=== PATIENT | male | born 2000 | race Caucasian/White ===

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

== ENCOUNTER 2021-02-23 05:25 | Inpatient (IN) | payer BC ==
[~2021-02-23] VITALS: Ht 170.2 cm; Wt 72.4 kg
[2021-02-23] VITALS (19 sets, daily range): BP systolic 97–110; BP diastolic 55–73
[2021-02-23] MEDS ORDERED: NS 1,000 ML IV ONE (05:35)
[2021-02-23 05:44] LABS: BASO % 0.4 % (0.0-1.0); EOS % 0.6 % (0.0-3.0); HEMATOCRIT 43.8 % (42.0-52.0); HEMOGLOBIN 14.8 g/dl (13.5-17.5); LYMPH % 40.5 % (24.0-44.0); MEAN CORPUSCULAR HEMOGLOBIN 32.2 pg (27.0-33.0); MEAN CORPUSCULAR HGB CONC 33.8 g/dl (32.0-36.5); MEAN CORPUSCULAR VOLUME 95.4 fl (80.0-96.0); MONO # 0.5 10^3/uL (0.0-0.8); MONO % 9.6 % (2.0-8.0); NEUTROPHILS # 2.4 10^3/uL (1.5-8.5); NEUTROPHILS % 48.3 % (36.0-66.0); PLATELET COUNT, AUTOMATED 234 10^3/uL (150-450); RED BLOOD COUNT 4.59 10^6/uL (4.30-6.10); WHITE BLOOD COUNT 4.9 10^3/uL (4.0-10.0)
[2021-02-23 06:16] LABS: ACETAMINOPHEN LEVEL 270.3 UG/ML (10.0-30.0); ALBUMIN 3.8 GM/DL (3.2-5.2); ALT/SGPT 41 U/L (12-78); BILIRUBIN,DIRECT < 0.1 MG/DL (0.0-0.2); BILIRUBIN,TOTAL 0.3 MG/DL (0.2-1.0); BLOOD UREA NITROGEN 10 MG/DL (7-18); CALCIUM LEVEL 8.3 MG/DL (8.5-10.1); CARBON DIOXIDE LEVEL 25 MEQ/L (21-32); CHLORIDE LEVEL 110 MEQ/L (98-107); CPK CREATINE PHOSPHOKINASE 71 U/L (39-308); CREATININE FOR GFR 0.74 MG/DL (0.70-1.30); ETHYL ALCOHOL (ETHANOL) 0.294 % (0.000-0.010); GLOMERULAR FILTRATION RATE > 60.0 (>60); GLUCOSE, FASTING 154 MG/DL (70-100); SALICYLATE LEVEL < 1.7 MG/DL (5.0-30.0); SODIUM LEVEL 145 MEQ/L (136-145)
[2021-02-23] MEDS ORDERED: TEST200I14 SC (06:23)
[2021-02-23] MEDS ORDERED: PROP20TA72 PO (06:23)
[2021-02-23] MEDS ORDERED: QUET50TA3 PO (06:23)
[2021-02-23] MEDS ORDERED: NS 2,240 ML in IV 1 EA IV ONE (06:45)
[2021-02-23 06:47] LABS: AMPHETAMINES LEVEL URINE NEGATIVE (NEGATIVE); BARBITURATES URINE NEGATIVE (NEGATIVE); BENZODIAZEPINES URINE NEGATIVE (NEGATIVE); CANNABINOIDS URINE NEGATIVE (NEGATIVE); COCAINE METABOLITE URINE NEGATIVE (NEGATIVE); METHADONE URINE NEGATIVE (NEGATIVE); OPIATES URINE NEGATIVE (NEGATIVE); PHENCYCLIDINE URINE NEGATIVE (NEGATIVE)
[2021-02-23 07:09] LABS: RSV AMPLIFICATION NEGATIVE (NEGATIVE)
--- NOTE | 2021-02-23 08:31 | ECGEPIP ---
[facility] [place] - ED Test Date: 2021-02-23 Pat Name: NADJA ESCOBEDO Department: Room: - Gender: Male Freight Loader: OSKAR : 2000 Requested By: ELIZABETH Bhatia Order Number: [id number] Reading MD: Dl Steel Measurements Intervals [place] Rate: 63 P: 70 AL: 134 QRS: 81 QRSD: 92 T: 36 QT: 404 QTc: 413 Interpretive Statements Normal sinus rhythm POOR R WAVE PROGRESSION NO PRIORS FOR COMPARISON Electronically Signed on 02-23-2021 8:30:41 EDT by Dl Steel
--- NOTE | 2021-02-23 08:34 | ECGEPIP ---
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
[2021-02-23] MEDS ORDERED: NS 1,000 ML IV SCH (09:20)
[2021-02-23] MEDS ORDERED: ACETYLCYSTEINE IV ONE ×3 (12:00→16:30)
[2021-02-23] MEDS ORDERED: D5W IV ONE ×3 (12:00→16:30)
[2021-02-23] MEDS ORDERED: DEXTROSE 50% 50 ML SYRINGE IV PRN (12:15)
[2021-02-23] MEDS ORDERED: GLUCAGON INJ 1MG VIAL SC PRN (12:15)
[2021-02-23] MEDS ORDERED: GLUCOSE 4GM CHEW TABLET PO PRN (12:15)
[2021-02-23] MEDS ORDERED: NOREPINEPHRINE BITARTRATE 8 MG in D5W 492 ML IV SCH (13:00)
[2021-02-23] MEDS: ONDANSETRON 4MG/2ML VIAL IV PRN (13:02)
[2021-02-23] MEDS ORDERED: LORazepam 2 MG TAB PO PRN (13:40)
--- NOTE | 2021-02-23 13:42 | HPEPDOC ---
General Date of Admission Feb 23, 2021 at 10:59 Date of Service: Feb 23, 2021 Chief Complaint The patient is a 20-year-old male admitted with a reason for visit of Hypotension And Intentional Drug Overdose. Source: Family, RN/MD History of Present Illness Mr. Scott is a 20 year old male with borderline personality disorder who was found unresponsive after intentional overdose. 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 No genital surgery, but did have breast removal surgery. Patient does follow with an pediatric lpn for testosterone. Patient is currently male. Patient has been having mental health issues since being a child. Mother tells me that he was diagnosed with borderline personality disorder and when he was on antidepressants, he would have suicidal ideation. Last night, around 4AM, he was talking with his best friend and asked the friend to take care of his pets. The friend hear pill rolling and asked the patient about it. Then at 4:15aM, patient was silent. The friend contacted patient's mom, and then contacted 911. Patient was brought to the ED. Patient is suspected to have overdosed on Seroquel, propranolol, acetaminophen, and alcohol. Known how many pills of Seroquel or propranolol due to being old prescriptions. Patient's qTC was not prolonged, but patient was hypotensive without bradycardia. Mother says that he was on propranolol for anxiety. Patient had an alcohol level of 0.294 and initial acetaminophen level of 270.3. Later on, it increased to 315.9. Poison control was contacted. Recommended the acetylcysteine protocol and rechecking the acetaminophen level until it plateaus. Due to the hypotension, recommended aggressive fluids and pressors. Central line was placed by ED provider. When I saw the patient, he was still obtunded. Mother was present and provided most of the history. Home Medications Scheduled Propranolol HCl (Propranolol HCl) 20 Mg Tablet, 20 MG PO BID, (Reported) Quetiapine Fumarate (Quetiapine Fumarate) 50 Mg Tablet, 50 MG PO QHS, (Reported) Testosterone Cypionate (Testosterone Cypionate) 200 Mg/1 Ml Vial, 0.3 ML SC QWEEK, (Reported) FRIDAYS OR SATURDAYS Allergies Coded Allergies: lamotrigine (Verified Allergy, Mild, RASH, 02/23/21) Past Medical History Medical History 1. Transgender (Born female, current male) 2. Borderline personality disorder with history of inpatient psych hospitalizations 3. Suicidal ideation 4. Anxiety Surgical History 1. Breast removal Family History Patient is obtunded, unable to obtain past family history from patient Social History * Smoker: other (Patient is obtunded, unable to obtain social history from patient) A-FIB/CHADSVASC A-FIB History Current/History of A-Fib/PAF?: No Review of Systems Other systems Patient is obtunded, unable to obtain review of systems from patient Physical Examination General Exam: Negative: Alert, Cooperative Eye Exam: Positive: Other Eye Symptoms (Pupils equal and round, sclera clear) ENT Exam: Positive: Atraumatic Chest Exam: Positive: Clear to auscultation Heart Exam: Positive: Rate Normal, Regular Rhythm Abdomen Exam: Positive: Normal bowel sounds Extremity Exam: Positive: Edema (mild bilateral pitting edema) Skin Exam: Positive: Nl turgor and temperature Neuro Exam: Positive: Other (Unable to obtain as patient was obtunded) Psych Exam: Positive: Other (Patient was obtunded); Negative: Mental status NL Vital Signs Vital Signs Date Time Temp Pulse Resp B/P (MAP) Pulse Ox O2 Delivery O2 Flow Rate FiO2 02/23/21 12:59 74 100 02/23/21 12:15 98/58 (71) 02/23/21 11:30 14 Nasal Cannula 2.0 02/23/21 06:18 97.3 Laboratory Data Labs 24H Laboratory Tests 2 02/23/21 05:30: Immature Granulocyte % (Auto) 0.6, Neutrophils (%) (Auto) 48.3, Lymphocytes (%) (Auto) 40.5, Monocytes (%) (Auto) 9.6H, Eosinophils (%) (Auto) 0.6, Basophils (%) (Auto) 0.4, Neutrophils # (Auto) 2.4, Lymphocytes # (Auto) 2.0, Monocytes # (Auto) 0.5, Eosinophils # (Auto) 0.0, Basophils # (Auto) 0.0, Nucleated Red Blo od Cells % (auto) 0.0, Anion Gap 10, Glomerular Filtration Rate > 60.0, Calcium Level 8.3L, Total Bilirubin 0.3, Direct Bilirubin < 0.1, Aspartate Amino Transf (AST/SGOT) 29, Alanine Aminotransferase (ALT/SGPT) 41, Alkaline Phosphatase 70, Total Creatine Kinase 71, Total Protein 7.0, Albumin 3.8, Albumin/Globulin Ratio 1.2, Thyroid Stimulating Hormone (TSH) 2.800, Salicylates Level < 1.7L, Acetami nophen Level 270.3H, Ethyl Alcohol Level 0.294H 02/23/21 05:55: POC pH (Misc Panel) 7.394, POC Base Excess (Misc Panel) 2.0, POC Saturated Percent O2 (Misc) 99H, POC pO2 (Misc Panel) 165.0H, POC pCO2 (Misc Panel) 44.3, POC HCO3 (Misc Panel) 27.1H, POC Total CO2 (Misc Panel) 28.0H 02/23/21 06:08: POC Beta HCG, Quantitative < 5.0 02/23/21 06:14: Urine Opiates Screen NEGATIVE, Urine Methadone Screen NEGATIVE, Urine Barbiturates Screen NEGATIVE, Urine Phencyclidine Screen NEGATIVE, Urine Amphetamines Screen NEGATIVE, Urine Benzodiazepines Screen NEGATIVE, Urine Cocaine Metabolite Screen NEGATIVE, Urine Cannabinoids Screen NEGATIVE 02/23/21 06:26: Coronavirus (COVID-19)(PCR) NEGATIVE, Influenza Type A (RT-PCR) NEGATIVE, Influenza Type B (RT-PCR) NEGATIVE, Respiratory Syncytial Virus (PCR) NEGATIVE 02/23/21 07:59: Acetaminophen Level 315.9H CBC/BMP Laboratory Tests 02/23/21 05:30 Assessment/Plan Mr. Scott is a 20 year old male with borderline personality disorder who was found unresponsive after intentional overdose. Poison control contracted. Will continue with acetylcysteine protocol and follow acetaminophen to plateau. Will check acetaminophen level 2 hours prior to completion of phase 3 of protocol. If acetaminophen is >10 or LFT's elevated, may need to contact poison control about continuing acetylcysteine. Otherwise, when patient is medically stable, patient will need to go to [facility]. Will reach out to psychiatry when patient is more awake. Continue with sitter and suicide precautions Plan / VTE VTE Prophylaxis Ordered?: Yes Plan Plan 1. Suicide attempt -Overdosed on propranolol, Seroquel, acetaminophen, and alcohol -Suicide precautions and sitter -When patient is more awake and medically stable, will reach out to psychiatry 2. Acetaminophen overdose -Poison control awake -Continue acetylcysteine protocol -Trend acetaminophen until plateau -Repeat acetaminophen level and LFT 2 hours prior to completion of phase 3 to determine if continuation of acetylcysteine is needed 3. Hypotension -Medication induced -No bradycardia -Continue with IVF -May need pressor, central line placed 4. Seroquel overdose -No qTC prolongation -Monitor on telemetry 5. Alcohol intoxication -Supportive care -Thiamine, Folic acid -CIPR protocol 6. DVT ppx -Lovenox Disposition: Pending clinical improvement, acetaminophen levels, and LFTs. Patient will most likely need IMHU when medically stable. MIGUEL ÁNGEL FRIEDMAN DO Feb 23, 2021 13:42
[2021-02-23] MEDS: NS 1,000 ML IV SCH ×2 (16:01→23:35)
[2021-02-23] MEDS: THIAMINE 200MG/2ML VIAL (J3411 PER 100MG) IV SCH (16:26)
[2021-02-23] MEDS: FOLIC ACID 1 MG in NS 50 ML IV SCH (16:31)
[2021-02-24] VITALS: BP 112/58
[2021-02-24 02:00] VITALS: BP 120/68
[2021-02-24 04:00] VITALS: BP 115/69
[2021-02-24] MEDS: ONDANSETRON 4MG/2ML VIAL IV PRN ×2 (04:18→10:53)
[2021-02-24 05:17] LABS: HEMATOCRIT 39.2 % (42.0-52.0); HEMOGLOBIN 13.2 g/dl (13.5-17.5); MEAN CORPUSCULAR HEMOGLOBIN 32.1 pg (27.0-33.0); MEAN CORPUSCULAR HGB CONC 33.7 g/dl (32.0-36.5); MEAN CORPUSCULAR VOLUME 95.4 fl (80.0-96.0); PLATELET COUNT, AUTOMATED 194 10^3/uL (150-450); RED BLOOD COUNT 4.11 10^6/uL (4.30-6.10); WHITE BLOOD COUNT 3.4 10^3/uL (4.0-10.0)
[2021-02-24 05:34] LABS: ACETAMINOPHEN LEVEL 56.2 UG/ML (10.0-30.0); ALBUMIN 2.9 GM/DL (3.2-5.2); ALT/SGPT 63 U/L (12-78); BILIRUBIN,DIRECT 0.3 MG/DL (0.0-0.2); TOTAL PROTEIN 5.7 GM/DL (6.4-8.2)
[2021-02-24] MEDS: NS 1,000 ML IV SCH ×3 (06:05→17:02)
[2021-02-24 08:00] VITALS: BP 124/62
[2021-02-24] MEDS ORDERED: ACETYLCYSTEINE 7,300 MG in D5W 1,000 ML IV ONE (08:30)
[2021-02-24] MEDS: PANTOPRAZOLE 40MG TAB (PROTONIX) PO SCH (08:44)
[2021-02-24] MEDS: ENOXAPARIN 40MG/0.4ML SYRINGE (J1650 PER 10MG) SC SCH (08:44)
[2021-02-24 10:34] LABS: BLOOD UREA NITROGEN 5 MG/DL (7-18); CALCIUM LEVEL 7.2 MG/DL (8.5-10.1); CARBON DIOXIDE LEVEL 21 MEQ/L (21-32); CHLORIDE LEVEL 112 MEQ/L (98-107); CREATININE FOR GFR 0.78 MG/DL (0.70-1.30); GLOMERULAR FILTRATION RATE > 60.0 (>60); GLUCOSE, FASTING 164 MG/DL (70-100); SODIUM LEVEL 143 MEQ/L (136-145)
[2021-02-24] MEDS ORDERED: POTASSIUM CHLORIDE 10 MEQ SR TABLET PO ONE (11:00)
[2021-02-24 11:09] LABS: MAGNESIUM LEVEL 1.7 MG/DL (1.8-2.4)
[2021-02-24] MEDS: THIAMINE 200MG/2ML VIAL (J3411 PER 100MG) IV SCH (12:32)
--- NOTE | 2021-02-24 13:23 | IPNPDOC ---
Subjective Date Seen The patient was seen on 02/24/21. Subjective Chief Complaint/HPI Mr. Scott is a 20 year old male with borderline personality disorder who was found unresponsive after intentional overdose. This morning, he appears more alert. He still has some nausea, but he feels hungry enough to try a diet. Otherwise, acetaminophen level is still not at goal. Continuing another phase 3 dose. This would be his second phase 3 dose. Objective Physical Examination General Exam: Positive: Alert, Cooperative Eye Exam: Positive: Other Eye Symptoms (Pupils equal and round, sclera clear) ENT Exam: Positive: Atraumatic Chest Exam: Positive: Clear to auscultation Heart Exam: Positive: Rate Normal, Regular Rhythm Abdomen Exam: Positive: Normal bowel sounds Extremity Exam: Positive: Edema (mild bilateral pitting edema) Skin Exam: Positive: Nl turgor and temperature Neuro Exam: Positive: Normal Speech Psych Exam: Positive: Mental status NL, Mood NL Assessment /Plan Assessment Mr. Scott is a 20 year old male with borderline personality disorder who was found unresponsive after intentional overdose. Poison control contracted. Will continue with acetylcysteine protocol and follow acetaminophen to plateau. Will check acetaminophen level 2 hours prior to completion of phase 3 of protocol. Goal is acetaminophen >10 and plateauing LFTs. Acetaminophen still elevated after phase 3 of protocol. Continuing with 2nd phase 3 of protocol Otherwise, when patient is medically stable, patient will need to go to IMHU. Will reach out to psychiatry when patient is more awake. Continue with sitter and suicide precautions Plan/VTE VTE Prophylaxis Ordered?: Yes Plan 1. Suicide attempt -Overdosed on propranolol, Seroquel, acetaminophen, and alcohol -Suicide precautions and sitter -When patient is more medically stable, will reach out to psychiatry 2. Acetaminophen overdose -Poison control aware -Continue acetylcysteine protocol -Trend LFTs until plateau -Repeat acetaminophen level 2 hours prior to completion of phase 3 acetylcysteine 3. Hypotension -Medication induced -No bradycardia -Continue with IVF -May need pressor, central line placed 4. Seroquel overdose -No qTC prolongation -Monitor on telemetry 5. Alcohol intoxication -Supportive care -Thiamine, Folic acid -CIWA protocol 6. DVT ppx -Lovenox Disposition: Pending clinical improvement, acetaminophen levels, and LFTs. Patient will most likely need IMHU when medically stable. VS, I&O, 24H, Fishbone Vital Signs/I&O Vital Signs Date Time Temp Pulse Resp B/P (MAP) Pulse Ox O2 Delivery O2 Flow Rate FiO2 02/24/21 08:00 97.8 66 17 124/62 (82) 98 Room Air 02/23/21 11:30 2.0 I&O- Last 24 Hours up to 6 AM 02/24/21 06:00 Intake Total 7156.59 ml Output Total 2560 ml Balance 4596.59 ml Laboratory Data 24H LABS Laboratory Tests 2 02/23/21 14:02: Acetaminophen Level 238.1H 02/23/21 16:18: Bedside Glucose (Misc Panel) 124H 02/23/21 17:25: Acetaminophen Level 192.3H 02/23/21 17:58: Bedside Glucose (Misc Panel) 116H 02/23/21 20:57: Acetaminophen Level 236.8H 02/24/21 00:48: Bedside Glucose (Misc Panel) 105 02/24/21 04:43: Acetaminophen Level 56.2H, Nucleated Red Blood Cells % (auto) 0.0, Anion Gap 10, Glomerular Filtration Rate > 60.0, Calcium Level 7.2L, Magnesium Level 1.7L, Total Bilirubin 1.0#, Direct Bilirubin 0.3H, Aspartate Amino Transf (AST/SGOT) 62H, Alanine Aminotransferase (ALT/SGPT) 63, Alkaline Phosphatase 51, Total Protein 5.7L, Albumin 2.9#L, Albumin/Globulin Ratio 1.0 02/24/21 06:47: Bedside Glucose (Misc Panel) 159H CBC/BMP Laboratory Tests 02/24/21 04:43 MIGUEL ÁNGEL FRIEDMAN DO Feb 24, 2021 13:22
[2021-02-24 15:39] VITALS: BP 122/77
[2021-02-24] MEDS: FOLIC ACID 1 MG in NS 50 ML IV SCH (17:02)
[2021-02-24 22:00] VITALS: BP 128/72
[2021-02-25 00:28] LABS: BILIRUBIN,DIRECT 0.8 MG/DL (0.0-0.2); TOTAL PROTEIN 5.6 GM/DL (6.4-8.2)
[2021-02-25] MEDS ORDERED: ACETYLCYSTEINE 0 MG in D5W 1,000 ML IV ONE (01:05)
[2021-02-25] MEDS: NS 1,000 ML IV SCH (01:28)
[2021-02-25] MEDS: ONDANSETRON 4MG/2ML VIAL IV PRN ×3 (01:28→18:00)
[2021-02-25] MEDS ORDERED: ACETYLCYSTEINE 7,300 MG in D5W 1,000 ML IV ONE (01:30)
[2021-02-25 05:47] VITALS: BP 124/79
[2021-02-25] MEDS: METOCLOPRAMIDE INJ 10MG/2ML VIAL (J2765 PER 1) IV PRN ×3 (06:05→18:00)
[2021-02-25 08:01] LABS: HEMATOCRIT 38.2 % (42.0-52.0); HEMOGLOBIN 13.3 g/dl (13.5-17.5); MEAN CORPUSCULAR HEMOGLOBIN 32.6 pg (27.0-33.0); MEAN CORPUSCULAR HGB CONC 34.8 g/dl (32.0-36.5); MEAN CORPUSCULAR VOLUME 93.6 fl (80.0-96.0); PLATELET COUNT, AUTOMATED 201 10^3/uL (150-450); RED BLOOD COUNT 4.08 10^6/uL (4.30-6.10); WHITE BLOOD COUNT 4.8 10^3/uL (4.0-10.0)
[2021-02-25] MEDS: PANTOPRAZOLE 40MG TAB (PROTONIX) PO SCH (08:03)
[2021-02-25] MEDS: ENOXAPARIN 40MG/0.4ML SYRINGE (J1650 PER 10MG) SC SCH (08:04)
[2021-02-25 08:49] LABS: BLOOD UREA NITROGEN 3 MG/DL (7-18); CALCIUM LEVEL 7.7 MG/DL (8.5-10.1); CARBON DIOXIDE LEVEL 25 MEQ/L (21-32); CHLORIDE LEVEL 110 MEQ/L (98-107); CREATININE FOR GFR 0.56 MG/DL (0.70-1.30); GLOMERULAR FILTRATION RATE > 60.0 (>60); GLUCOSE, FASTING 113 MG/DL (70-100); POTASSIUM SERUM 2.9 MEQ/L (3.5-5.1); SODIUM LEVEL 142 MEQ/L (136-145)
[2021-02-25] MEDS ORDERED: POTASSIUM CHLORIDE 10 MEQ SR TABLET PO ONE (09:00)
[2021-02-25 09:15] LABS: MAGNESIUM LEVEL 1.8 MG/DL (1.8-2.4)
[2021-02-25] MEDS: KCL 10MEQ/100ML SWI (KRUN) 10 MEQ in IV 1 EA IV SCH ×6 (09:46→21:42)
[2021-02-25] MEDS ORDERED: KCL 40MEQ IN D5/0.45NS 1000ML 1,000 ML IV SCH (10:50)
--- NOTE | 2021-02-25 11:02 | IPNPDOC ---
Subjective Date Seen The patient was seen on 02/25/21. Subjective Chief Complaint/HPI Mr. Scott is a 20 year old male with borderline personality disorder who was found unresponsive after intentional overdose. Overnight, his AST and ALT increased from 62 to 806 and 63 to 575. Patient was put on 3rd phase 3 of acetylcysteine. This morning, he reports intermittent nausea, vomiting and abdominal pain. Otherwise, potassium is low at 2.9, will give PO and IV potassium. Objective Physical Examination General Exam: Positive: Alert, Cooperative Eye Exam: Positive: Other Eye Symptoms (Pupils equal and round, sclera clear) ENT Exam: Positive: Atraumatic Chest Exam: Positive: Clear to auscultation Heart Exam: Positive: Rate Normal, Regular Rhythm Abdomen Exam: Positive: Normal bowel sounds Extremity Exam: Positive: Edema (mild bilateral pitting edema) Skin Exam: Positive: Nl turgor and temperature Neuro Exam: Positive: Normal Speech Psych Exam: Positive: Mental status NL, Mood NL Assessment /Plan Assessment Mr. Scott is a 20 year old male with borderline personality disorder who was found unresponsive after intentional overdose. Poison control contracted. Will continue with acetylcysteine protocol and follow acetaminophen to plateau. Will check acetaminophen level 2 hours prior to completion of phase 3 of protocol. Goal is acetaminophen >10 and plateauing LFTs. Acetaminophen still elevated after phase 3 of protocol. Continuing with 3nd phase 3 of protocol Otherwise, when patient is medically stable, patient will need to go to IMHU. Continue with sitter and suicide precautions Plan/VTE VTE Prophylaxis Ordered?: Yes Plan 1. Suicide attempt -Overdosed on propranolol, Seroquel, acetaminophen, and alcohol -Suicide precautions and sitter -When patient is more medically stable, will reach out to psychiatry 2. Acetaminophen overdose -Poison control aware -Continue acetylcysteine protocol -Trend LFTs until plateau -Repeat acetaminophen level 2 hours prior to completion of phase 3 acetylcysteine 3. Hypotension -Medication induced -No bradycardia -Continue with IVF 4. Seroquel overdose -No qTC prolongation 5. Alcohol intoxication -Supportive care -Thiamine, Folic acid -CIWA protocol 6. DVT ppx -Lovenox Disposition: Pending clinical improvement and LFTs. Patient will most likely need IMHU when medically stable. VS, I&O, 24H, Fishbone Vital Signs/I&O Vital Signs Date Time Temp Pulse Resp B/P (MAP) Pulse Ox O2 Delivery O2 Flow Rate FiO2 02/25/21 05:47 98.9 58 20 124/79 (94) 98 Room Air 02/23/21 11:30 2.0 I&O- Last 24 Hours up to 6 AM 02/25/21 06:00 Intake Total 3485.0 ml Output Total 425 ml Balance 3060.0 ml Laboratory Data 24H LABS Laboratory Tests 2 02/24/21 23:39: Total Bilirubin 2.0#H, Direct Bilirubin 0.8H, Aspartate Amino Transf (AST/SGOT) 806H, Alanine Aminotransferase (ALT/SGPT) 575H, Alkaline Phosphatase 53, Total Protein 5.6L, Albumin 3.0L, Albumin/Globulin Ratio 1.2, Acetaminophen Level 2.0L 02/25/21 07:50: Nucleated Red Blood Cells % (auto) 0.0, Anion Gap 7L, Glomerular Filtration Rate > 60.0, Calcium Level 7.7L, Magnesium Level 1.8 CBC/BMP Laboratory Tests 02/25/21 07:50 MIGUEL ÁNGEL FRIEDMAN DO Feb 25, 2021 11:02
[2021-02-25] MEDS ORDERED: PROMETHAZINE INJ 25 MG/ML VIAL (J2550) IV ONE (13:50)
[2021-02-25 14:00] VITALS: BP 129/83
[2021-02-25] MEDS: NICOTINE 21MG/24HR 1 EA TRANSDERMAL TD SCH (14:17)
[2021-02-25 14:38] LABS: ACETAMINOPHEN LEVEL 2.2 UG/ML (10.0-30.0); ALBUMIN 2.9 GM/DL (3.2-5.2); BILIRUBIN,DIRECT 0.6 MG/DL (0.0-0.2); BILIRUBIN,TOTAL 1.5 MG/DL (0.2-1.0); TOTAL PROTEIN 5.5 GM/DL (6.4-8.2)
[2021-02-25] MEDS: FOLIC ACID 1 MG in NS 50 ML IV SCH (15:05)
[2021-02-25] MEDS: THIAMINE 200MG/2ML VIAL (J3411 PER 100MG) IV SCH (15:33)
[2021-02-25 16:20] LABS: ALBUMIN 3.2 GM/DL (3.2-5.2); ALT/SGPT 833 U/L (12-78); BILIRUBIN,DIRECT 0.7 MG/DL (0.0-0.2); BILIRUBIN,TOTAL 1.7 MG/DL (0.2-1.0); TOTAL PROTEIN 6.2 GM/DL (6.4-8.2)
[2021-02-25 17:34] LABS: BLOOD UREA NITROGEN 3 MG/DL (7-18); CALCIUM LEVEL 7.7 MG/DL (8.5-10.1); CARBON DIOXIDE LEVEL 27 MEQ/L (21-32); CHLORIDE LEVEL 109 MEQ/L (98-107); CREATININE FOR GFR 0.61 MG/DL (0.70-1.30); GLOMERULAR FILTRATION RATE > 60.0 (>60); GLUCOSE, FASTING 128 MG/DL (70-100); POTASSIUM SERUM 2.8 MEQ/L (3.5-5.1); SODIUM LEVEL 141 MEQ/L (136-145)
[2021-02-25] MEDS ORDERED: SODIUM CHLORIDE 0.9% INJ 10 ML SYR IV PRN (17:50)
[2021-02-25] MEDS ORDERED: ACETYLCYSTEINE 7,500 MG in D5W 1,000 ML IV ONE (18:05)
[2021-02-25 20:35] VITALS: BP 125/79
[2021-02-25] MEDS: SODIUM CHLORIDE 0.9% INJ 10 ML SYR IV SCH (21:00)
[2021-02-25 23:47] LABS: BLOOD UREA NITROGEN 2 MG/DL (7-18); CALCIUM LEVEL 7.8 MG/DL (8.5-10.1); CARBON DIOXIDE LEVEL 24 MEQ/L (21-32); CHLORIDE LEVEL 111 MEQ/L (98-107); CREATININE FOR GFR 0.58 MG/DL (0.70-1.30); GLOMERULAR FILTRATION RATE > 60.0 (>60); GLUCOSE, FASTING 133 MG/DL (70-100); POTASSIUM SERUM 3.5 MEQ/L (3.5-5.1); SODIUM LEVEL 143 MEQ/L (136-145)
[2021-02-26] MEDS: ONDANSETRON 4MG/2ML VIAL IV PRN ×2 (00:06→07:01)
[2021-02-26 04:35] VITALS: BP 125/78
[2021-02-26] MEDS: SODIUM CHLORIDE 0.9% INJ 10 ML SYR IV SCH ×3 (07:02→21:56)
[2021-02-26] MEDS: NICOTINE 21MG/24HR 1 EA TRANSDERMAL TD SCH (08:02)
[2021-02-26] MEDS: PANTOPRAZOLE 40MG TAB (PROTONIX) PO SCH (08:03)
[2021-02-26] MEDS: ENOXAPARIN 40MG/0.4ML SYRINGE (J1650 PER 10MG) SC SCH (08:03)
[2021-02-26] MEDS: METOCLOPRAMIDE INJ 10MG/2ML VIAL (J2765 PER 1) IV PRN (09:21)
[2021-02-26 10:46] LABS: HEMATOCRIT 38.4 % (42.0-52.0); HEMOGLOBIN 13.6 g/dl (13.5-17.5); MEAN CORPUSCULAR HEMOGLOBIN 32.7 pg (27.0-33.0); MEAN CORPUSCULAR HGB CONC 35.4 g/dl (32.0-36.5); MEAN CORPUSCULAR VOLUME 92.3 fl (80.0-96.0); PLATELET COUNT, AUTOMATED 183 10^3/uL (150-450); RED BLOOD COUNT 4.16 10^6/uL (4.30-6.10); WHITE BLOOD COUNT 6.5 10^3/uL (4.0-10.0)
[2021-02-26 11:30] LABS: ALBUMIN 3.2 GM/DL (3.2-5.2); ALT/SGPT 2634 U/L (12-78); BILIRUBIN,DIRECT 0.7 MG/DL (0.0-0.2); BILIRUBIN,TOTAL 1.4 MG/DL (0.2-1.0); BLOOD UREA NITROGEN 2 MG/DL (7-18); CALCIUM LEVEL 8.2 MG/DL (8.5-10.1); CARBON DIOXIDE LEVEL 27 MEQ/L (21-32); CHLORIDE LEVEL 105 MEQ/L (98-107); CREATININE FOR GFR 0.54 MG/DL (0.70-1.30); GLOMERULAR FILTRATION RATE > 60.0 (>60); GLUCOSE, FASTING 95 MG/DL (70-100); SODIUM LEVEL 141 MEQ/L (136-145); TOTAL PROTEIN 6.1 GM/DL (6.4-8.2)
[2021-02-26 13:02] LABS: INR 1.44; PROTHROMBIN TIME 17.9 SECONDS (12.5-14.3)
[2021-02-26] MEDS: THIAMINE 200MG/2ML VIAL (J3411 PER 100MG) IV SCH (13:23)
[2021-02-26 14:00] VITALS: BP 128/67
[2021-02-26] MEDS ORDERED: ACETYLCYSTEINE 7,900 MG in D5W 1,000 ML IV ONE ×2 (14:00→15:00)
[2021-02-26] MEDS: KCL 10MEQ/100ML SWI (KRUN) 10 MEQ in IV 1 EA IV SCH ×2 (14:30→16:38)
--- NOTE | 2021-02-26 14:47 | IPNPDOC ---
Subjective Date Seen The patient was seen on 02/26/21. Subjective Chief Complaint/HPI Mr. Scott is a 20 year old male with borderline personality disorder who was found unresponsive after intentional overdose. This morning, his liver enzymes increased again from AST 862 to 3288 and ALT 833 to 2634. INR is 1.44. I contacted poison control. They told me that acetylcysteine will cause a false elevation of INR of 1.5. As long as INR is less than 2, it is okay. They are aware of sharp increase in AST and ALT. Recommended continuation of acetylcysteine. Otherwise, patient still has some nausea. Objective Physical Examination General Exam: Positive: Alert, Cooperative Eye Exam: Positive: Other Eye Symptoms (Pupils equal and round, sclera clear) ENT Exam: Positive: Atraumatic Chest Exam: Positive: Clear to auscultation Heart Exam: Positive: Rate Normal, Regular Rhythm Abdomen Exam: Positive: Normal bowel sounds Extremity Exam: Positive: Edema (mild bilateral pitting edema) Skin Exam: Positive: Nl turgor and temperature Neuro Exam: Positive: Normal Speech Psych Exam: Positive: Mental status NL, Mood NL Assessment /Plan Assessment Mr. Scott is a 20 year old male with borderline personality disorder who was found unresponsive after intentional overdose. Poison control contracted. Will continue with acetylcysteine protocol and follow acetaminophen to plateau. Will check acetaminophen level 2 hours prior to completion of phase 3 of protocol. Goal is acetaminophen <10 and plateauing LFTs. LFT still increasing. Continuing with 4th phase 3 of protocol Otherwise, when patient is medically stable, patient will need to go to IM. C ontinue with sitter and suicide precautions Plan/VTE VTE Prophylaxis Ordered?: Yes Plan 1. Suicide attempt -Overdosed on propranolol, Seroquel, acetaminophen, and alcohol -Suicide precautions and sitter -When patient is more medically stable, will reach out to psychiatry 2. Acetaminophen overdose -Poison control aware -Continue acetylcysteine protocol -Trend LFTs until plateau -Repeat acetaminophen level 2 hours prior to completion of phase 3 acetylcysteine 3. Hypotension -Medication induced -No bradycardia -Continue with IVF 4. Seroquel overdose -No qTC prolongation 5. Alcohol intoxication -Supportive care -Thiamine, Folic acid -CIWA protocol 6. DVT ppx -Lovenox Disposition: Pending clinical improvement and LFTs. Patient will most likely need IMHU when medically stable. VS, I&O, 24H, [facility] Vital Signs/I&O Vital Signs Date Time Temp Pulse Resp B/P (MAP) Pulse Ox O2 Delivery O2 Flow Rate FiO2 02/26/21 14:00 99.6 86 16 128/67 (87) 99 Room Air 02/23/21 11:30 2.0 I&O- Last 24 Hours up to 6 AM 02/26/21 06:00 Intake Total 1160 ml Output Total 0 ml Balance 1160 ml Laboratory Data 24H LABS Laboratory Tests 2 02/25/21 15:41: Anion Gap 5L, Glomerular Filtration Rate > 60.0, Calcium Level 7.7L, Total Bilirubin 1.7H, Direct Bilirubin 0.7H, Aspartate Amino Transf (AST/SGOT) 862H, Alanine Aminotransferase (ALT/SGPT) 833H, Alkaline Phosphatase 59, Total Protein 6.2L, Albumin 3.2, Albumin/Globulin Ratio 1.1 02/25/21 23:15: Anion Gap 8, Glomerular Filtration Rate > 60.0, Calcium Level 7.8L 02/26/21 10:30: Anion Gap 9, Glomerular Filtration Rate > 60.0, Calcium Level 8.2L, Total Bilirubin 1.4H, Direct Bilirubin 0.7H, Aspartate Amino Transf (AST/SGOT) 3288H, Alanine Aminotransferase (ALT/SGPT) 2634H, Alkaline Phosphatase 63, Total Protein 6.1L, Albumin 3.2, Albumin/Globulin Ratio 1.1, Nucleated Red Blood Cells % (auto) 0.0 02/26/21 12:43: Prothrombin Time 17.9H, Prothromb Time International Ratio 1.44 CBC/BMP Laboratory Tests 02/25/21 15:41 02/25/21 23:15 02/26/21 10:30 MIGUEL ÁNGEL FRIEDMAN DO Feb 26, 2021 14:47
[2021-02-26] MEDS: FOLIC ACID 1 MG in NS 50 ML IV SCH (16:38)
[2021-02-26 20:58] VITALS: BP 120/81
[2021-02-26 21:29] LABS: BLOOD UREA NITROGEN 2 MG/DL (7-18); CALCIUM LEVEL 7.9 MG/DL (8.5-10.1); CARBON DIOXIDE LEVEL 30 MEQ/L (21-32); CHLORIDE LEVEL 106 MEQ/L (98-107); CREATININE FOR GFR 0.54 MG/DL (0.70-1.30); GLOMERULAR FILTRATION RATE > 60.0 (>60); GLUCOSE, FASTING 89 MG/DL (70-100); SODIUM LEVEL 140 MEQ/L (136-145)
[2021-02-26 22:37] VITALS: BP 120/81
[2021-02-27] MEDS: SODIUM CHLORIDE 0.9% INJ 10 ML SYR IV SCH ×2 (05:18→15:18)
[2021-02-27 05:37] LABS: HEMATOCRIT 37.4 % (42.0-52.0); MEAN CORPUSCULAR HEMOGLOBIN 32.5 pg (27.0-33.0); MEAN CORPUSCULAR HGB CONC 34.8 g/dl (32.0-36.5); MEAN CORPUSCULAR VOLUME 93.5 fl (80.0-96.0); PLATELET COUNT, AUTOMATED 169 10^3/uL (150-450); WHITE BLOOD COUNT 4.7 10^3/uL (4.0-10.0)
[2021-02-27 05:52] LABS: INR 1.29; PROTHROMBIN TIME 16.4 SECONDS (12.5-14.3)
[2021-02-27 06:05] VITALS: BP 118/81
[2021-02-27 06:14] LABS: ALBUMIN 3.1 GM/DL (3.2-5.2); ALT/SGPT 1936 U/L (12-78); BILIRUBIN,DIRECT 0.6 MG/DL (0.0-0.2); BILIRUBIN,TOTAL 1.2 MG/DL (0.2-1.0); BLOOD UREA NITROGEN 2 MG/DL (7-18); CALCIUM LEVEL 7.9 MG/DL (8.5-10.1); CARBON DIOXIDE LEVEL 29 MEQ/L (21-32); CHLORIDE LEVEL 105 MEQ/L (98-107); GLOMERULAR FILTRATION RATE > 60.0 (>60); GLUCOSE, FASTING 93 MG/DL (70-100); SODIUM LEVEL 139 MEQ/L (136-145); TOTAL PROTEIN 5.8 GM/DL (6.4-8.2)
[2021-02-27 06:27] VITALS: BP 118/81
[2021-02-27] MEDS ORDERED: POTASSIUM CHLORIDE 10 MEQ SR TABLET PO ONE (08:00)
[2021-02-27] MEDS: ENOXAPARIN 40MG/0.4ML SYRINGE (J1650 PER 10MG) SC SCH (08:31)
[2021-02-27] MEDS: NICOTINE 21MG/24HR 1 EA TRANSDERMAL TD SCH (08:31)
[2021-02-27] MEDS: PANTOPRAZOLE 40MG TAB (PROTONIX) PO SCH (08:31)
[2021-02-27] MEDS ORDERED: ACETYLCYSTEINE IV ONE (10:00)
[2021-02-27] MEDS ORDERED: D5W IV ONE (10:00)
[2021-02-27] MEDS: THIAMINE 200MG/2ML VIAL (J3411 PER 100MG) IV SCH (11:33)
[2021-02-27 14:00] VITALS: BP 120/80
[2021-02-27] MEDS: FOLIC ACID 1 MG in NS 50 ML IV SCH (15:18)
--- NOTE | 2021-02-27 15:43 | IPNPDOC ---
Subjective Date Seen The patient was seen on 02/27/21. Subjective Chief Complaint/HPI Mr. Scott is a 20 year old male with borderline personality disorder who was found unresponsive after intentional overdose. Today, his AST decreased from 3288 to 1401 and ALT 2634 to 1936. I spoke with poison control. They want to continue until LFT are under 1000. Will continue another 16 hour protocol. This morning, he is feeling better. He was able to tolerate PO KCL. Otherwise, I consulted psychiatry, Dr. Centeno, today. Recommendations appreciated Objective Physical Examination General Exam: Positive: Alert, Cooperative Eye Exam: Positive: Other Eye Symptoms (Pupils equal and round, sclera clear) ENT Exam: Positive: Atraumatic Chest Exam: Positive: Clear to auscultation Heart Exam: Positive: Rate Normal, Regular Rhythm Abdomen Exam: Positive: Normal bowel sounds Extremity Exam: Positive: Edema (mild bilateral pitting edema) Skin Exam: Positive: Nl turgor and temperature Neuro Exam: Positive: Normal Speech Psych Exam: Positive: Mental status NL, Mood NL Assessment /Plan Assessment Mr. Scott is a 20 year old male with borderline personality disorder who was found unresponsive after intentional overdose. Poison control contracted. Will c ontinue with acetylcysteine protocol and follow acetaminophen to plateau. Will check acetaminophen level 2 hours prior to completion of phase 3 of protocol. Goal is acetaminophen <10 and plateauing LFTs. LFT still increasing. Continuing with 5th phase 3 of protocol Otherwise, psychiatry consulted, recommendations appreciated. I will continue with sitter and suicide precautions Plan/VTE VTE Prophylaxis Ordered?: Yes Plan 1. Suicide attempt -Overdosed on propranolol, Seroquel, acetaminophen, and alcohol -Suicide precautions and sitter -Psychiatry consulted, recommendations appreciated 2. Acetaminophen overdose -Poison control aware -Continue acetylcysteine protocol -Trend LFTs until less than 1000 -Repeat acetaminophen level 2 hours prior to completion of phase 3 acetylcysteine 3. Hypotension -Medication induced -No bradycardia -Continue with IVF 4. Seroquel overdose -No qTC prolongation 5. Alcohol intoxication -Supportive care -Thiamine, Folic acid, multivitamin -CIWA protocol 6. DVT ppx -Lovenox Disposition: Pending clinical improvement and LFTs. Patient will most likely need IMHU when medically stable. VS, I&O, 24H, Fishbone Vital Signs/I&O Vital Signs Date Time Temp Pulse Resp B/P (MAP) Pulse Ox O2 Delivery O2 Flow Rate FiO2 02/27/21 14:00 80 120/80 02/27/21 14:00 98.8 16 97 Room Air 02/23/21 11:30 2.0 I&O- Last 24 Hours up to 6 AM 02/27/21 06:00 Intake Total 720 ml Balance 720 ml Laboratory Data 24H LABS Laboratory Tests 2 02/26/21 20:55: Anion Gap 4L, Glomerular Filtration Rate > 60.0, Calcium Level 7.9L 02/27/21 05:27: Anion Gap 5L, Glomerular Filtration Rate > 60.0, Calcium Level 7.9L, Nucleated Red Blood Cells % (auto) 0.0, Prothrombin Time 16.4H, Prothromb Time International Ratio 1.29, Total Bilirubin 1.2H, Direct Bilirubin 0.6H, Aspartate Amino Transf (AST/SGOT) 1401H, Alanine Aminotransferase (ALT/SGPT) 1936H, Alkaline Phosphatase 56, Total Protein 5.8L, Albumin 3.1L, Albumin/Globulin Ratio 1.1 CBC/BMP Laboratory Tests 02/26/21 20:55 02/27/21 05:27 MIGUEL ÁNGEL FRIEDMAN DO Feb 27, 2021 15:43
[2021-02-27 19:58] VITALS: BP 125/81
[2021-02-28 01:50] LABS: HEMATOCRIT 41.1 % (42.0-52.0); HEMOGLOBIN 14.1 g/dl (13.5-17.5); MEAN CORPUSCULAR HEMOGLOBIN 32.7 pg (27.0-33.0); MEAN CORPUSCULAR HGB CONC 34.3 g/dl (32.0-36.5); MEAN CORPUSCULAR VOLUME 95.4 fl (80.0-96.0); PLATELET COUNT, AUTOMATED 182 10^3/uL (150-450); RED BLOOD COUNT 4.31 10^6/uL (4.30-6.10); WHITE BLOOD COUNT 4.7 10^3/uL (4.0-10.0)
[2021-02-28 02:01] LABS: INR 1.14; PROTHROMBIN TIME 14.9 SECONDS (12.5-14.3)
[2021-02-28 02:26] LABS: ALBUMIN 3.2 GM/DL (3.2-5.2); ALT/SGPT 1461 U/L (12-78); BILIRUBIN,DIRECT 0.4 MG/DL (0.0-0.2); BILIRUBIN,TOTAL 0.8 MG/DL (0.2-1.0); BLOOD UREA NITROGEN 3 MG/DL (7-18); CALCIUM LEVEL 8.2 MG/DL (8.5-10.1); CARBON DIOXIDE LEVEL 28 MEQ/L (21-32); CHLORIDE LEVEL 108 MEQ/L (98-107); CREATININE FOR GFR 0.49 MG/DL (0.70-1.30); GLOMERULAR FILTRATION RATE > 60.0 (>60); GLUCOSE, FASTING 83 MG/DL (70-100); POTASSIUM SERUM 3.3 MEQ/L (3.5-5.1); SODIUM LEVEL 140 MEQ/L (136-145); TOTAL PROTEIN 6.4 GM/DL (6.4-8.2)
[2021-02-28 03:56] VITALS: BP 119/79
[2021-02-28] MEDS ORDERED: POTASSIUM CHLORIDE 10 MEQ SR TABLET PO ONE (08:00)
[2021-02-28] MEDS: NICOTINE 21MG/24HR 1 EA TRANSDERMAL TD SCH (08:51)
[2021-02-28] MEDS: MULTIVITAMINS/MINERALS THERAP 1 TAB PO SCH (08:51)
[2021-02-28] MEDS: ENOXAPARIN 40MG/0.4ML SYRINGE (J1650 PER 10MG) SC SCH (08:51)
[2021-02-28] MEDS: PANTOPRAZOLE 40MG TAB (PROTONIX) PO SCH (08:51)
[2021-02-28] MEDS: THIAMINE 100 MG TAB PO SCH (08:51)
[2021-02-28] MEDS: FOLIC ACID 1 MG TAB PO SCH (08:51)
--- NOTE | 2021-02-28 10:53 | IPNPDOC ---
Subjective Date Seen The patient was seen on 02/28/21. Subjective Chief Complaint/HPI Mr. Scott is a 20 year old male with borderline personality disorder who was found unresponsive after intentional overdose. Today, his AST dropped below 1000 and ALT continued to trend downwards. I contacted poison control. No more acetylcysteine needed. This morning, patient feels well. Denies nausea, chest pain, dyspnea, or abdominal pain. Patient is medically clear for [facility]. Objective Physical Examination General Exam: Positive: Alert, Cooperative Eye Exam: Positive: Other Eye Symptoms (Pupils equal and round, sclera clear) ENT Exam: Positive: Atraumatic Chest Exam: Positive: Clear to auscultation Heart Exam: Positive: Rate Normal, Regular Rhythm Abdomen Exam: Positive: Normal bowel sounds Extremity Exam: Positive: Edema (mild bilateral pitting edema) Skin Exam: Positive: Nl turgor and temperature Neuro Exam: Positive: Normal Speech Psych Exam: Positive: Mental status NL, Mood NL Assessment /Plan Assessment Mr. Scott is a 20 year old male with borderline personality disorder who was found unresponsive after intentional overdose. Poison control contracted. Will continue with acetylcysteine protocol and follow acetaminophen to plateau. Will check acetaminophen level 2 hours prior to completion of phase 3 of protocol. Goal is acetaminophen <10 and plateauing LFTs. Now resolved. Completed a total of five phase 3 of protocol Otherwise, psychiatry consulted, recommendations appreciated. I will continue with sitter and suicide precautions Plan/VTE VTE Prophylaxis Ordered?: Yes Plan 1. Suicide attempt -Overdosed on propranolol, Seroquel, acetaminophen, and alcohol -Suicide precautions and sitter -Psychiatry consulted, recommendations appreciated 2. Acetaminophen overdose -Completed five phase 3 protocol -Resolved 3. Hypotension -Medication induced -No bradycardia -Resolved 4. Seroquel overdose -No qTC prolongation 5. Alcohol intoxication -Supportive care -Thiamine, Folic acid, multivitamin -CIWA protocol 6. DVT ppx -Lovenox Disposition: Patient is now medically stable. Pending bed availability at [facility]. VS, I&O, 24H, Fishbone Vital Signs/I&O Vital Signs Date Time Temp Pulse Resp B/P (MAP) Pulse Ox O2 Delivery O2 Flow Rate FiO2 02/28/21 03:56 98.6 89 18 119/79 (92) 97 Room Air 02/23/21 11:30 2.0 I&O- Last 24 Hours up to 6 AM 02/28/21 06:00 Intake Total 1672.5 ml Balance 1672.5 ml Laboratory Data 24H LABS Laboratory Tests 2 02/28/21 01:39: Nucleated Red Blood Cells % (auto) 0.0, Prothrombin Time 14.9H, Prothromb Time International Ratio 1.14, Anion Gap 4L, Glomerular Filtration Rate > 60.0, Calcium Level 8.2L, Total Bilirubin 0.8, Direct Bilirubin 0.4H, Aspartate Amino Transf (AST/SGOT) 649H, Alanine Aminotransferase (ALT/SGPT) 1461H, Alkaline Phosphatase 54, Total Protein 6.4, Albumin 3.2, Albumin/Globulin Ratio 1.0 CBC/BMP Laboratory Tests 02/28/21 01:39 MIGUEL ÁNGEL FRIEDMAN DO Feb 28, 2021 10:53
[2021-02-28 14:00] VITALS: BP 118/76
--- NOTE | 2021-02-28 14:56 | MHCR ---
[facility] CONSULTATION DATE: 02/26/2021 The patient is seen via Telepsychiatry due to the current coronavirus crisis. HISTORY OF PRESENT ILLNESS: I was asked to see this 20-year-old transgender female to male with a history of borderline personality disorder. The patient was apparently speaking with a friend online and then he stopped talking to the friend and he took a very serious overdose of prescription medications of propranolol, Seroquel, Advil and Tylenol. His acetaminophen level was 315 upon admission. Today he says that he is feeling "not too bad." He says "That was a stupid mistake," referring to the overdose. He says he is never going to do that again and he is really minimizing the significance of his attempt. He thinks that he had built up stress and he admits that he had been drinking on the day of the overdose and he saw a movie about somebody with depression and he says it was an impulsive thing, the overdose. He does admit that maybe he has been having some depression recently. He says that he started to see a private therapist by the name of Jen Saha in the area about a month ago and he says his primary care provider, who is still in [place], where he used to live, still prescribes his medications of Seroquel 50 mg at bedtime, which he says is for sleep and he says that they prescribed propranolol 20 mg twice a day for his anxiety. The patient states that he has tried antidepressants before and he will not take them because he does not like their effect. He says he has been diagnosed, apart from borderline personality disorder, with anxiety disorder, depression and he says recently with posttraumatic stress disorder (PTSD), but he says he does not want to discuss this any further. I did not elicit any manic or hypomanic-like symptoms or obsessive-compulsive disorder (OCD) or panic attacks in this patient. PAST PSYCHIATRIC HISTORY: He does have a significant history of cutting and he said he was hospitalized a few times when he was younger, the last time at 15 years old. He said once, when he was 14, he took an overdose of some of his prescriptions, but he says it was not serious, like now. FAMILY HISTORY: Maternal grandmother, he believes, has some kind of psychiatric illness, but he does not know much about it. There are no suicides in the family. MEDICAL HISTORY: There are no medical problems SUBSTANCE ABUSE HISTORY: This is as noted above. He uses cannabis regularly, but denies alcohol or any other drugs. ABUSE HISTORY: This is as noted above. MENTAL STATUS EXAMINATION: The patient is alert and oriented times three. He is pleasant and cooperative, verbally spontaneous. His eye contact is good. There is no formal thought disorder noted. Mood is "better." Affect is constricted, but appropriate. He is not psychotic. He is denying suicidal or homicidal ideations. Concentration is fair. Memory intact. Insight and judgment is poor. DIAGNOSES: 1. Unspecified depressive disorder. 2. Unspecified anxiety disorder. 3. Cannabis use disorder. 4. Borderline personality disorder. TREATMENT PLAN: We will transfer the patient to the psychiatric unit once medically stable for further stabilization. He took a very serious overdose and I think that he is still at significant risk, even though he is denying suicidal ideations now to some degree. I think he is minimizing the events that led to his overdose.
[2021-02-28 20:00] VITALS: BP 119/79
[2021-03-01 06:05] VITALS: BP 123/75
[2021-03-01] MEDS: ENOXAPARIN 40MG/0.4ML SYRINGE (J1650 PER 10MG) SC SCH (08:37)
[2021-03-01] MEDS: NICOTINE 21MG/24HR 1 EA TRANSDERMAL TD SCH (08:37)
[2021-03-01] MEDS: THIAMINE 100 MG TAB PO SCH (08:38)
[2021-03-01] MEDS: FOLIC ACID 1 MG TAB PO SCH (08:38)
[2021-03-01] MEDS: PANTOPRAZOLE 40MG TAB (PROTONIX) PO SCH (08:38)
[2021-03-01] MEDS: MULTIVITAMINS/MINERALS THERAP 1 TAB PO SCH (08:38)
[2021-03-01 10:33] LABS: HEMATOCRIT 42.7 % (42.0-52.0); HEMOGLOBIN 14.3 g/dl (13.5-17.5); MEAN CORPUSCULAR HEMOGLOBIN 32.4 pg (27.0-33.0); MEAN CORPUSCULAR HGB CONC 33.5 g/dl (32.0-36.5); MEAN CORPUSCULAR VOLUME 96.8 fl (80.0-96.0); PLATELET COUNT, AUTOMATED 201 10^3/uL (150-450); RED BLOOD COUNT 4.41 10^6/uL (4.30-6.10); WHITE BLOOD COUNT 4.6 10^3/uL (4.0-10.0)
--- NOTE | 2021-03-01 10:51 | IPNPDOC ---
Subjective Date Seen The patient was seen on 03/01/21. Subjective Chief Complaint/HPI Mr. Scott is a 20 year old male with borderline personality disorder who was found unresponsive after intentional overdose. This morning, he feels well. Denies chest pain, abdominal pain, or nausea. [facility] Objective Physical Examination General Exam: Positive: Alert, Cooperative Eye Exam: Positive: Other Eye Symptoms (Pupils equal and round, sclera clear) ENT Exam: Positive: Atraumatic Chest Exam: Positive: Clear to auscultation Heart Exam: Positive: Rate Normal, Regular Rhythm Abdomen Exam: Positive: Normal bowel sounds Extremity Exam: Positive: Edema (mild bilateral pitting edema) Skin Exam: Positive: Nl turgor and temperature Neuro Exam: Positive: Normal Speech Psych Exam: Positive: Mental status NL, Mood NL Assessment /Plan Assessment Mr. Scott is a 20 year old male with borderline personality disorder who was found unresponsive after intentional overdose. Poison control contracted. Will continue with acetylcysteine protocol and follow acetaminophen to plateau. Will check acetaminophen level 2 hours prior to completion of phase 3 of protocol. Goal is acetaminophen <10 and plateauing LFTs. Now resolved. Completed a total of five phase 3 of protocol Otherwise, psychiatry consulted, recommendations appreciated. I will continue with sitter and suicide precautions. Patient is medically cleared [facility] Plan/VTE VTE Prophylaxis Ordered?: Yes Plan 1. Suicide attempt -Overdosed on propranolol, Seroquel, acetaminophen, and alcohol -Suicide precautions and sitter -Psychiatry consulted, recommendations appreciated 2. Acetaminophen overdose -Completed five phase 3 protocol -Resolved 3. Hypotension -Medication induced -No bradycardia -Resolved 4. Seroquel overdose -No qTC prolongation 5. Alcohol intoxication -Supportive care -Thiamine, Folic acid, multivitamin -CIWA protocol 6. DVT ppx -Lovenox Disposition: Patient is now medically stable. [facility] VS, I&O, 24H, Magnobone Vital Signs/I&O Vital Signs Date Time Temp Pulse Resp B/P (MAP) Pulse Ox O2 Delivery O2 Flow Rate FiO2 03/01/21 06:05 97.7 82 20 123/75 (91) 97 02/28/21 20:00 Room Air 02/23/21 11:30 2.0 I&O- Last 24 Hours up to 6 AM 03/01/21 06:00 Intake Total 860 ml Balance 860 ml Laboratory Data 24H LABS Laboratory Tests 2 03/01/21 10:09: Nucleated Red Blood Cells % (auto) 0.0 CBC/BMP Laboratory Tests 03/01/21 10:09 MIGUEL ÁNGEL FRIEDMAN DO Mar 01, 2021 10:51
[2021-03-01 11:02] LABS: BLOOD UREA NITROGEN 6 MG/DL (7-18); CALCIUM LEVEL 8.9 MG/DL (8.5-10.1); CARBON DIOXIDE LEVEL 27 MEQ/L (21-32); CHLORIDE LEVEL 107 MEQ/L (98-107); CREATININE FOR GFR 0.56 MG/DL (0.70-1.30); GLOMERULAR FILTRATION RATE > 60.0 (>60); GLUCOSE, FASTING 84 MG/DL (70-100); SODIUM LEVEL 141 MEQ/L (136-145)
[2021-03-01 14:00] VITALS: BP 124/75
[2021-03-01 22:00] VITALS: BP 126/78
[2021-03-02 06:00] VITALS: BP 108/63
[2021-03-02] MEDS: NICOTINE 21MG/24HR 1 EA TRANSDERMAL TD SCH (08:05)
[2021-03-02] MEDS: ENOXAPARIN 40MG/0.4ML SYRINGE (J1650 PER 10MG) SC SCH (08:05)
[2021-03-02] MEDS: FOLIC ACID 1 MG TAB PO SCH (08:06)
[2021-03-02] MEDS: THIAMINE 100 MG TAB PO SCH (08:06)
[2021-03-02] MEDS: MULTIVITAMINS/MINERALS THERAP 1 TAB PO SCH (08:06)
[2021-03-02] MEDS: PANTOPRAZOLE 40MG TAB (PROTONIX) PO SCH (08:06)
[2021-03-02 09:31] LABS: HEMATOCRIT 41.1 % (42.0-52.0); HEMOGLOBIN 13.8 g/dl (13.5-17.5); MEAN CORPUSCULAR HEMOGLOBIN 32.3 pg (27.0-33.0); MEAN CORPUSCULAR HGB CONC 33.6 g/dl (32.0-36.5); MEAN CORPUSCULAR VOLUME 96.3 fl (80.0-96.0); PLATELET COUNT, AUTOMATED 208 10^3/uL (150-450); RED BLOOD COUNT 4.27 10^6/uL (4.30-6.10); WHITE BLOOD COUNT 4.8 10^3/uL (4.0-10.0)
[2021-03-02 10:04] LABS: ALBUMIN 3.7 GM/DL (3.2-5.2); ALT/SGPT 813 U/L (12-78); BILIRUBIN,TOTAL 0.7 MG/DL (0.2-1.0); BLOOD UREA NITROGEN 7 MG/DL (7-18); CALCIUM LEVEL 8.9 MG/DL (8.5-10.1); CARBON DIOXIDE LEVEL 26 MEQ/L (21-32); CHLORIDE LEVEL 107 MEQ/L (98-107); CREATININE FOR GFR 0.62 MG/DL (0.70-1.30); GLOMERULAR FILTRATION RATE > 60.0 (>60); GLUCOSE, FASTING 121 MG/DL (70-100); POTASSIUM SERUM 3.6 MEQ/L (3.5-5.1); SODIUM LEVEL 140 MEQ/L (136-145); TOTAL PROTEIN 6.7 GM/DL (6.4-8.2)
[2021-03-02 10:21] LABS: ALBUMIN 3.7 GM/DL (3.2-5.2); ALT/SGPT 1083 U/L (12-78); BILIRUBIN,DIRECT 0.2 MG/DL (0.0-0.2); BILIRUBIN,TOTAL 0.8 MG/DL (0.2-1.0); TOTAL PROTEIN 6.7 GM/DL (6.4-8.2)
--- NOTE | 2021-03-02 14:32 | DS.PDOC ---
Discharge Summary General Date of Admission Feb 23, 2021 at 10:59 Date of Discharge 03/02/2021 Attending Physician: EMILE SORTO DO Specialist/Consultants Involve: Farheen Fabian Discharge Summary PROCEDURES PERFORMED DURING STAY: None. ADMITTING DIAGNOSES: 1. Suicide attempt. 2. Acetaminophen overdose 3. Hypertension 4. Seroquel overdose 5. Alcohol intoxication DISCHARGE DIAGNOSES: 1. Suicide attempt. 2. Acetaminophen overdose 3. Hypertension 4. Seroquel overdose 5. Alcohol intoxication. COMPLICATIONS/CHIEF COMPLAINT: Hypotension And Intentional Drug Overdose. HISTORY OF PRESENT ILLNESS: Patient is a 20-year-old male with borderline personality disorder who was found unresponsive after an intentional overdose. Patient is transgender and was born female. Patient did have breast removal surgery and follows with endocrinology for testosterone. Patient currently identifies as male. Patient has been having mental health issues since being a child. Patient was diagnosed with borderline personality disorder and when he was on antidepressants he would have suicidal ideation. On the night of admission, 02/23/2021 around 4 AM patient was talking with his best friend and asked the friend to take care of his pets. The friend heard pill-rolling and asked the patient about it. Then at 415 the patient went silent. The friend contacted the patient's mom who then contacted 911. Patient was brought to the emergency department and was suspected to have overdosed on Seroquel, propranolol, acetaminophen, and alcohol. It is unknown how many pills of Seroquel propranolol due to them being old prescriptions. Patient's QTC was not prolonged but patient was hypotensive without bradycardia. Mother says the patient is on propanolol for anxiety. Patient's alcohol level was 0.294 and initial acetaminophen level was 270.3. Later on this increased to 315.9. Poison control was contacted and recommended acetylcysteine protocol and rechecking the acetaminophen level until it plateaus. Due to the hypotension, aggressive fluid and pressors. Central line was placed by ED provider. Patient was still obtunded upon being seen by hospitalist and mother provided most of the history.. HOSPITAL COURSE: Patient continue to receive N-acetylcysteine as his Tylenol level was still not at goal. Patient received multiple phase 3 doses of this medication. Patient continued to have elevation of his liver enzymes including a sharp increase on 02/26/2021. N-acetylcysteine was recommended by poison control. Patient also had an elevated INR however, and N-acetylcysteine can cause falsely elevated INR and as long as the INR was below 2, poison control is okay with this. Patient was seen by psychiatry on 02/27/2021 who recommended that the patient be admitted for further treatment of suicidal ideations to the inpatient mental health unit. Bed was not initially available to the patient was continue to be monitored on the medical floor. Patient's liver enzymes continue to improve and the patient was feeling well. Bed became available on 03/02/2021 and the patient was discharged to the inpatient mental health unit. Patient was denying suicidal ideations at this time. Patient stated that he just wanted to get better. DISCHARGE MEDICATIONS: Please see below. ALLERGIES: Please see below. PHYSICAL EXAMINATION ON DISCHARGE: VITAL SIGNS: Please see below. General: Alert and oriented male patient who was laying in bed when I walk into the room. Patient did not appear to be in any acute distress. HEENT: Normocephalic, atraumatic, moist mucous membranes. Neck: No lymphadenopathy or thyromegaly Cardiac: Regular rate and rhythm, no murmurs, normal S1, normal S2 Pulm: Clear to auscultation bilaterally. No wheezes, rhonchi, rales Abd: Nondistended, nontender to palpation, normal bowel sounds Ext: No edema bilateral lower extremities LABORATORY DATA: Please see below. IMAGING: No imaging was performed PROGNOSIS: Good ACTIVITY: As tolerated. DIET: Regular DISCHARGE PLAN: Discharge to inpatient mental health unit DISPOSITION: Discharged to inpatient mental health unit DISCHARGE INSTRUCTIONS: 1. Follow-up with inpatient mental health unit provider. ITEMS TO FOLLOWUP ON ON OUTPATIENT: 1. Continue to monitor liver enzymes for resolving of transaminitis. DISCHARGE CONDITION: Stable. TIME SPENT ON DISCHARGE: 35 minutes Vital Signs/I&Os Vital Signs Date Time Temp Pulse Resp B/P (MAP) Pulse Ox O2 Delivery O2 Flow Rate FiO2 03/02/21 06:00 98.4 65 16 108/63 (78) 97 Room Air I&O- Last 24 Hours up to 6 AM 03/02/21 06:00 Intake Total 1440 ml Balance 1440 ml Laboratory Data Labs 24H Laboratory Tests 2 03/02/21 09:13: Nucleated Red Blood Cells % (auto) 0.0, Anion Gap 7L, Glomerular Filtration Rate > 60.0, Calcium Level 8.9, Total Bilirubin 0.7, Aspartate Amino Transf (AST/SGOT) 144H, Alanine Aminotransferase (ALT/SGPT) 813H, Alkaline Phosphatase 61, Total Protein 6.7, Albumin 3.7, Albumin/Globulin Ratio 1.2 CBC/BMP Laboratory Tests 03/02/21 09:13 Discharge Medications Scheduled Propranolol HCl (Propranolol HCl) 20 Mg Tablet, 20 MG PO BID, (Reported) Quetiapine Fumarate (Quetiapine Fumarate) 50 Mg Tablet, 50 MG PO QHS, (Reported) Testosterone Cypionate (Testosterone Cypionate) 200 Mg/1 Ml Vial, 0.3 ML SC QWEEK, (Reported) FRIDAYS OR SATURDAYS Allergies Coded Allergies: lamotrigine (Verified Allergy, Mild, RASH, 02/23/21) EMILE SORTO DO Mar 02, 2021 14:32
== END 2021-03-02 15:50 | DRG 812 ==
LOC: M ED 05:25 → M ED INP 10:59 → ENRESERV 12:15 → M ICU 12:30 → M MS5PR 02-24 16:00
PROVIDERS: ADMIT Internal Medicine; ATTEND Family Medicine
DX: T44.7X2A Poisoning by beta-adrenoreceptor antagonists, intentional self-harm, initial encounter (principal); F41.9 Anxiety disorder, unspecified; T43.592A Poisoning by other antipsychotics and neuroleptics, intentional self-harm, initial encounter; T39.1X2A Poisoning by 4-Aminophenol derivatives, intentional self-harm, initial encounter; F10.120 Alcohol abuse with intoxication, uncomplicated; Z79.899 Other long term (current) drug therapy; Z20.822 Contact with and (suspected) exposure to COVID-19; F60.3 Borderline personality disorder; T14.91XA Suicide attempt, initial encounter; Z88.8 Allergy status to other drugs, medicaments and biological substances; I95.2 Hypotension due to drugs; F12.10 Cannabis abuse, uncomplicated

== ENCOUNTER 2021-03-02 12:56 | Inpatient (IN) | payer BC ==
[~2021-03-02 12:56] MED LIST: PROP20TA72 PO; QUET50TA3 PO; TEST200I14 SC
[2021-03-02] MEDS ORDERED: MOM 30ML SUSPENSION UDC PO PRN (13:10)
[2021-03-02] MEDS ORDERED: ACETAMINOPHEN TAB 650MG DOSE (2X325MG) PO PRN (13:10)
[2021-03-02] MEDS ORDERED: MAALOX 30 ML SUSP *UDC PO PRN (13:10)
[2021-03-02] MEDS ORDERED: traZODone 50 MG TAB PO PRN (13:10)
[2021-03-02 16:41] VITALS: BP 123/79
[2021-03-02] MEDS: QUEtiapine FUMARATE 50MG TAB PO SCH (21:08)
[2021-03-03 06:00] VITALS: BP 136/63
[2021-03-03] MEDS: NICOTINE 21MG/24HR 1 EA TRANSDERMAL TD SCH (09:00)
[2021-03-03] MEDS: PANTOPRAZOLE 40MG TAB (PROTONIX) PO SCH (10:05)
--- NOTE | 2021-03-03 10:40 | MHHPEPDOC ---
General Date Of Admission: Mar 02, 2021 Legal Status: 9.39 Chief Complaint I was watching a sad movie and was drinking and just got very emotional. ". History of Present Illness HISTORY OF THE PRESENT ILLNESS: Patient is a 20 -year-old , male, who [long history of depression and borderline personality disorder with multiple admissions and residential treatment between ages 13 through 15. He has not received any outpatient treatment since 2018 until about a month ago but has been receiving Seroquel and propranolol from his primary care physician for anxiety. Patient stated that he was doing fairly well finished 2 years of college and has been working at [employer] full-time for the past 2 years. Patient stated that with the recent coronavirus crisis his job became very str essful and also not having any outpatient therapy was causing him to have increasing depression and anxiety symptoms. On February 23 night he was at home alone drinking beer and was watching TV which was very sad movie the day was showing he became very emotional and sad and impulsively took most of the medicine he had in his medicine cabinet. Apparently the medications included Tylenol Advil and his Seroquel and he became unconscious. One of his close friend was checking on him and got concerned when he did not respond and called crisis hotline and he was brought to emergency room and admitted to ICU. Now he is medically stabilized and transferred to inpatient psychiatry. Patient stated that he is fully aware that he made serious overdose attempt but he does not have any more suicidal wish and is very glad that he is alive and he would like to continue his outpatient therapy initiated 1 week prior to this episode. He is a very pleasant cooperative appears very sincere and honest in his presentation. He denies any substance abuse issues admits that he had about 3 overdose attempts when he was in his high school but no other suicidal attempt until this episode. He stated that he has several friends that he is close to and his family is very supportive and his work is very understanding and he would like to go home soon and resume his therapy and his work and go on living.]. Psychiatric Review of Systems Depression (2 or more weeks): depressed mood, anhedonia, feelings of wor thlesness, decreased energy, suicidal thoughts, other (Reports she is feeling better now and does not have any serious suicidal thoughts and does not have any serious depressed mood) Sejal (4 or more days of): denies PTSD: denies Anxiety: situational anxiety, stressor related anxiety Past Psychiatric History Previous Psychiatric Diagnosis: . Major depression anxiety disorder and borderline personality disorder Previous Psychiatric Admissions: . 8 different inpatient admissions between age 13 through 15 Suicide Attempts: [3 overdose attempts between age of 13 through 15]. Psychiatric Follow-up: . Recently started outpatient therapy Psychiatric medications: Patient reports very adverse response to many different antidepressant medicine and mood stabilizers and does not plan to take any antidepressant. Past Medical History Medical Problems No major medical history Family Medical/Psychiatric HX Psychiatric Disorders: No (There is no family psychiatric history) Addiction History denies Social History Childhood: . Born in [facility] [facility] finished high school was in several residential treatment Abuse/Trauma:. No history of abuse Current Living Situation: . Lives alone in an apartment Education: . 2-year college Employment: . Full-time employment with [employer] Social Support: . Family and friends Legal: . No legal history no history of violence Marital: . Never Mental Status Examination General Appearance: appears stated age Build: average Demeanor: average Eye Contact: average Activity: average, other (Moderately anxious) Behavior: cooperative Speech: clear, spontaneous, normal volume Mood: anxious Mood Moderately anxious about his serious attempt admits that he has increasing depression recently but denies any serious issues with the sleep or appetite and denies any more suicidal thoughts Affect: full, appropriate, congruent Thought Process: logical/linear Thought Content (Delusions): none reported, denies SI, HI, AVH Thought Content (Other): none reported Thought Content (Aggressive): none reported Perception (Hallucinations): none reported Perception (Other): none reported Cognition (Impairment of): none reported Cognition(Intelligence Est.): average Oriented: Awake, Alert, Oriented times three Insight: fair Judgment: Fair Psychosis: Denies Diagnoses Depressive disorder NOS borderline personality disorder A-FIB/CHADSVASC A-FIB History Current/History of A-Fib/PAF?: No Current PO Anticoag Therapy: No Age/Risk Factor Scoring CHADSVASC: CHADSVASC Response (Comments) Value Age Risk Factor Age < 65 years old 0 Gender Risk Factor Male 0 Hx of CHF No 0 Hx of HTN No 0 Hx of Stroke/TIA/or VTE No 0 Hx of Diabetes No 0 Hx of Vascular Disease No 0 Total 0 Treatment Treatment ordered: NONE Assessment Patient made a serious suicidal attempt although it was not planned and appears to be an impulsive nature. Patient strongly denies any more suicidal plan or thoughts and is scheduled to follow-up with outpatient therapist weekly. He reports adverse reaction and increased to suicidal thoughts when he was tried on 16 different antidepressant and mood stabilizer and does not want to take any antidepressant medicine. He reports that he has been functioning fairly well for the past 4 years with propranolol for anxiety and Seroquel for anxiety and sleep and wants to continue with. Due to the serious nature of his suicidal attempt we will observe him in an inpatient setting for lethality evaluation for the next 2 to 3 days. Initial Treatment Plan 1. Patient was admitted on a 9.39 status. 2. Complete history was obtained. 3. With patients permission, family will be contacted and database will be expanded. 4. Patients medication regimen will be reviewed and changed accordingly. 5. Patient will be provided with protected environment. 6. Patient will be treated with individual, group, and milieu therapies. 7. Patient will receive supportive psych-education. 8. Discharge planning will commence immediately. 9. Outpatient follow-up treatment will be strongly recommended. 10. The initial treatment plan will focus initially on: * Depression. * Risk for suicide. ESTIMATED LENGTH OF STAY: 2-3 DAYS. TIME SPENT COUNSELING AND COORDINATING INITIAL CARE: 45 minutes. Complete/Results docum. Vital Signs Vital Signs Date Time Temp Pulse Resp B/P (MAP) Pulse Ox O2 Delivery O2 Flow Rate FiO2 03/03/21 06:00 97.4 63 18 136/63 (87) 97 Room Air Medications Scheduled Propranolol HCl (Propranolol HCl) 20 Mg Tablet, 20 MG PO BID, (Reported) Quetiapine Fumarate (Quetiapine Fumarate) 50 Mg Tablet, 50 MG PO QHS, (Reported) Testosterone Cypionate (Testosterone Cypionate) 200 Mg/1 Ml Vial, 0.3 ML SC QWEEK, (Reported) FRIDAYS OR SATURDAYS Allergies Coded Allergies: lamotrigine (Verified Allergy, Mild, RASH, 02/23/21) CHIQUIS FULLER M.D. Mar 03, 2021 10:39
[2021-03-03] MEDS: PROPRANOLOL 20 MG TAB PO SCH ×2 (12:29→20:24)
--- NOTE | 2021-03-03 16:48 | HPEPDOC ---
[facility] Medical History & Physical Date of Admission Mar 03, 2021 Date of Service: Mar 03, 2021 History and Physical CHIEF COMPLAINT: Suicidal ideation HISTORY OF PRESENT ILLNESS: Patient is 20 year old transgender FTM with PMH depression and anxiety presented with complaints of depression with SI. He stated that this is an ongoing problem for him and has struggled with this for a long time. He denies any medical complaints and reportedly only takes propanolol for anxiety and seroquel for sleep. He is taking testosterone therapy and follows with endocrinology. He self injects it at home weekly. PAST MEDICAL HISTORY: Refer to [facility] PAST SURGICAL HISTORY: b/l breast removal SOCIAL HISTORY: Uses vape and smokes marijuana. Social alcohol use. FAMILY HISTORY: Father- ITP ALLERGIES: Please see below. REVIEW OF SYSTEMS: 10 point review of system negative except as stated in HPI HOME MEDICATIONS: Please see below. PHYSICAL EXAMINATION: General: No acute distress, Alert Eyes: Normal sclera, EOMI HENT: Atraumatic Cardiovascular: Normal rate, normal rhythm. Pulmonary: Clear to auscultation b/l, no wheezing GI: Soft, nontender, nondistended Skin: Warm and dry Neuro: CN grossly intact. No focal deficits. Strengths equal b/l. Psych: oriented x 3 LABORATORY DATA: See below. IMAGING: None MICROBIOLOGY: Please see below. ASSESSMENT AND PLAN: 1. Depression/SI - Meds to be managed by Psych. - Recurrent problem reportedly. 2. Gender reassignment - On weekly testosterone injection. Patient not yet due but anticipate that he will be discharged and get the injection at home. - No active problems. No acute medical problems at this time, will sign off. Please call with any questions, thank you. Vital Signs Vital Signs Date Time Temp Pulse Resp B/P (MAP) Pulse Ox O2 Delivery O2 Flow Rate FiO2 03/03/21 12:29 96 03/03/21 06:00 97.4 18 136/63 (87) 97 Room Air Home Medications Scheduled Propranolol HCl (Propranolol HCl) 20 Mg Tablet, 20 MG PO BID Quetiapine Fumarate (Quetiapine Fumarate) 50 Mg Tablet, 50 MG PO QHS Testosterone Cypionate (Testosterone Cypionate) 200 Mg/1 Ml Vial, 0.3 ML SC QWEEK FRIDAYS OR SATURDAYS Allergies Coded Allergies: lamotrigine (Verified Allergy, Mild, RASH, 02/23/21) A-FIB/CHADSVASC A-FIB History Current/History of A-Fib/PAF?: No Age/Risk Factor Scoring CHADSVASC: CHADSVASC Response (Comments) Value Age Risk Factor Age < 65 years old 0 Gender Risk Factor Male 0 Hx of CHF No 0 Hx of HTN No 0 Hx of Stroke/TIA/or VTE No 0 Hx of Diabetes No 0 Hx of Vascular Disease No 0 Total 0 JONNY RIVERA MD Mar 03, 2021 16:48
[2021-03-03 17:31] VITALS: BP 123/77
[2021-03-03] MEDS: QUEtiapine FUMARATE 50MG TAB PO SCH (20:24)
[2021-03-04 07:04] VITALS: BP 101/56
[2021-03-04] MEDS: PANTOPRAZOLE 40MG TAB (PROTONIX) PO SCH (09:48)
[2021-03-04] MEDS: NICOTINE 21MG/24HR 1 EA TRANSDERMAL TD SCH (09:48)
[2021-03-04] MEDS: PROPRANOLOL 20 MG TAB PO SCH ×2 (09:50→21:26)
--- NOTE | 2021-03-04 10:03 | MHIPNPDOC ---
[facility] Progress Note Progress Note DATE OF SERVICE: 03/04/21 The patient reports that he is feeling fine and feeling more hopeful. He took his propranolol yesterday and slept very well and apparently has been taking thi s for the past several years for his anxiety. He again reports that he has been tried on about 16 different antidepressant and the mood stabilizers and never had any success and in fact some of them made him feel more suicidal. He is again denying any suicidal intent at all after this overdose attempt stated that he has so many people cares about him and has fairly good support system and wants to get back to his work and back to his life. HISTORY:. VITAL SIGNS: See below. NEW TEST RESULTS:. CURRENT MEDICATIONS: See below. MENTAL STATUS EXAMINATION: Patient is a he is 22-year old male, who is in no acute distress. Speech: Is rational and coherent. Language skills are good. Thought processes including: Coherent and productive. Thought content: Denies any more suicidal thoughts. Abstract reasoning, and computation: Good. Description of associations: Organized. Description of abnormal or psychotic thoughts: Denies any. Judgment: Fair. Insight: Fair. Orientation: Well oriented. Recent and remote memory: Unimpaired. Attention span and concentration: Fair. Language:. Fund of knowledge:. Mood: Only mildly anxious. Affect: Appropriate. DIAGNOSES: 1.. Major depression recurrent and borderline personality disorder 2.. 3.. ASSESSMENT: Showing stable mood and behavior MANAGEMENT PLAN: Continue with his current medicine and supportive therapy and possibly discharge tomorrow. TIME SPENT: Minutes. Vital Signs Vital Signs Date Time Temp Pulse Resp B/P (MAP) Pulse Ox O2 Delivery O2 Flow Rate FiO2 03/04/21 09:50 68 122/64 03/04/21 07:04 97.6 20 97 Room Air Current Medications Current Medications Medications (Trade) Dose Ordered Sig/Nanette Route PRN Reason Start Time Stop Time Status Last Admin Dose Admin Acetaminophen (Tylenol Tab) 650 mg Q6HP PRN PO HEADACHE or MILD DISCOMFORT 03/02/21 13:10 Al Hydrox/Mg Hydrox/Simethicone (Mylanta) 30 ml Q4HP PRN PO HEARTBURN/INDIGESTION 03/02/21 13:10 Home Med (Med Rec Complete!) ASDIRECTED XX 03/02/21 16:50 03/02/21 17:18 DC Magnesium Hydroxide (Milk Of Magnesia) 30 ml DAILYPRN PRN PO CONSTIPATION 03/02/21 13:10 Nicotine (Nicoderm Cq 21mg) 1 patch DAILY TD 03/03/21 09:00 03/04/21 09:48 Pantoprazole Sodium (Protonix) 40 mg DAILY PO 03/03/21 09:00 03/04/21 09:48 Propranolol HCl (Inderal) 20 mg BID PO 03/03/21 09:00 03/04/21 09:50 Quetiapine Fumarate (SEROquel) 50 mg QHS PO 03/02/21 21:00 03/03/21 20:24 Trazodone HCl (Desyrel) 50 mg QHSP PRN PO INSOMNIA 03/02/21 13:10 Allergies Coded Allergies: lamotrigine (Verified Allergy, Mild, RASH, 02/23/21) CHIQUIS FULLER M.D. Mar 04, 2021 10:03
[2021-03-04 18:00] VITALS: BP 142/64
[2021-03-04] MEDS: QUEtiapine FUMARATE 50MG TAB PO SCH (21:24)
[2021-03-05 06:27] VITALS: BP 115/64
[2021-03-05] MEDS ORDERED: PROP20TA PO (08:18)
[2021-03-05] MEDS ORDERED: QUET50TA3 PO (08:18)
[2021-03-05] MEDS: NICOTINE 21MG/24HR 1 EA TRANSDERMAL TD SCH (10:22)
[2021-03-05] MEDS: PANTOPRAZOLE 40MG TAB (PROTONIX) PO SCH (10:22)
[2021-03-05 10:25] VITALS: BP 135/64
[2021-03-05] MEDS: PROPRANOLOL 20 MG TAB PO SCH (10:25)
--- NOTE | 2021-03-05 10:49 | MHDSPDOC ---
[facility] Discharge Summary Discharge Summary DATE OF ADMISSION: Mar 02, 2021 at 15:57 DATE OF DISCHARGE: March 05, 2021 DISCHARGE DIAGNOSES: 1.. Major depression recurrent 2.. Borderline personality disorder REASON FOR ADMISSION: 20-year-old man with long history of depression and borderline personality disorder admitted to general medicine on February 16 after taking serious overdose of his prescription medicine as a suicidal attempt. Patient was transferred after he was medically stabilized. Patient admits to somewhat impulsive suicidal attempt but since that attempt patient reports that he is feeling much regretful and does not have any more suicidal plan or intent. CONSULTANTS INVOLVED: TREATMENT AND PROGRESS ON THE UNIT : Patient was seen for supportive therapy and lethality evaluation and was restarted on his medications of Seroquel 50 mg at bedtime and propranolol 20 mg twice a day. Patient reported history of poor response to 16 different antidepressant and mood stabilizers and does not want to be on any of those medications. He has been doing fairly well and is currently employed full-time by [employer] and recently started day new outpatient treatment. Patient remained in good control and fully cooperating with evaluation and discharge planning and is fully capable of keny for safety.. HOSPITAL COURSE: Patient has maintained good control and denied any further suicidal thoughts or plan and is feeling safe and is requesting discharge. He has not been in any therapy for 3 years but recently started the new outpatient therapy and is going to follow-up with weekly visits. He does not appear to be acutely suicidal and appears to be stable at his baseline and will be discharged DISCHARGE ASSESSMENT: Improved stable and not suicidal MENTAL STATUS EXAMINATION ON DISCHARGE: Patient is a 20-year old male, who is in good control. Speech is clear rational. Language skills are good. Thought processes including: Coherent unproductive. Thought content: No suicidal thoughts. Abstract reasoning, and computation: Good. Description of associations: Well organized. Description of abnormal or psychotic thoughts: None. Judgment: Fair. Insight: Good. Orientation to well oriented. Recent and remote memory: Unimpaired. Attention span and concentration: Good. Language:. Fund of knowledge:. Mood: Mildly anxious. Affect: Appropriate. MEDICATIONS ON DISCHARGE: -For. Seroquel 50 mg at bedtime for 7 days with 3 refills -For. Propranolol 20 mg twice a day for 7 days with 3 refills -For. PLAN/FOLLOWUP ARRANGEMENTS: With his current therapist. The amount of time spent in the coordination of care for this patient was approximately 35 minutes. ETOH/Disorder Med Rx ETOH/DRUG DISORDER RX: N/A Vital Signs/I&Os Vital Signs Date Time Temp Pulse Resp B/P (MAP) Pulse Ox O2 Delivery O2 Flow Rate FiO2 03/05/21 10:25 90 135/64 03/05/21 06:27 98.3 14 96 Room Air Medications Scheduled Propranolol HCl (Propranolol HCl) 20 Mg Tablet, 20 MG PO BID for anxiety for 7 Days, #14 Quetiapine Fumarate (Quetiapine Fumarate) 50 Mg Tablet, 50 MG PO QHS for mood for 7 Days, #7 Testosterone Cypionate (Testosterone Cypionate) 200 Mg/1 Ml Vial, 0.3 ML SC QWEEK, (Reported) FRIDAYS OR SATURDAYS Allergies Coded Allergies: lamotrigine (Verified Allergy, Mild, RASH, 02/23/21) CHIQUIS FULLER M.D. Mar 05, 2021 10:49
== END 2021-03-05 12:10 | disposition home or self-care (01) | DRG 751 ==
LOC: M PSY 15:57
PROVIDERS: ADMIT Psychiatry & Neurology Psychiatry; ATTEND Psychiatry & Neurology Psychiatry
DX: F33.9 Major depressive disorder, recurrent, unspecified (principal); F60.3 Borderline personality disorder; Z91.5 Personal history of self-harm; Z79.899 Other long term (current) drug therapy; Z87.890 Personal history of sex reassignment

== ENCOUNTER → 2021-11-23 | Outpatient (REF) ==
[~2021-11-23] MED LIST changes: +PROP20TA PO; -QUET50TA3 PO; +QUET50TA4 PO
[2021-11-23 13:21] LABS: RSV AMPLIFICATION NEGATIVE (NEGATIVE)
== END ==
LOC: M EMP 11:37
PROVIDERS: ATTEND Family Medicine
DX: Z20.822 Contact with and (suspected) exposure to COVID-19 (principal)

== ENCOUNTER → 2022-05-06 | Outpatient (REF) ==
[2022-05-06 11:59] LABS: RSV AMPLIFICATION NEGATIVE (NEGATIVE)
== END ==
LOC: M EMP 08:58
PROVIDERS: ATTEND Family Medicine
DX: Z20.822 Contact with and (suspected) exposure to COVID-19 (principal)

== ENCOUNTER → 2022-08-17 | Outpatient (REF) ==
[2022-08-17 10:41] LABS: RSV AMPLIFICATION NEGATIVE (NEGATIVE)
== END ==
LOC: M LABSMTC 09:13
PROVIDERS: ATTEND Family Medicine
DX: Z20.818 Contact with and (suspected) exposure to other bacterial communicable diseases (principal)

== ENCOUNTER → 2023-11-15 | Outpatient (REF) | LOC: M EMP 12:26 | PROVIDERS: ATTEND Family Medicine | DX: Z01.89 Encounter for other specified special examinations (principal) ==

== ENCOUNTER → 2023-11-15 | Outpatient (REF) | LOC: M EMP 10:37 | PROVIDERS: ATTEND Family Medicine | DX: Z01.89 Encounter for other specified special examinations (principal) ==

== ENCOUNTER → 2024-11-14 | Outpatient (REF) | payer BC | LOC: M LAB REF 21:10 | PROVIDERS: ATTEND Physician Assistant Medical | DX: R05.9 Cough, unspecified (principal); R52 Pain, unspecified ==